=== PATIENT | female | born 1965 | race Caucasian/White ===

== ENCOUNTER 2024-01-29 08:42 | Emergency (ER) | payer MEDICAID ==
[~2024-01-29] VITALS: Ht 152.4 cm; Wt 63.0 kg
[2024-01-29 08:45] VITALS: O2SAT 99
[2024-01-29] MEDS ORDERED: KETOROLAC 60MG/2ML VIAL IM ONE (09:15)
[2024-01-29] MEDS ORDERED: IBUP-2029 MT (09:34)
[2024-01-29] MEDS ORDERED: BO1 TP (09:34)
[2024-01-29] MEDS: KETOROLAC 30MG/ML VIAL IM SCH (10:14)
[2024-01-29] MEDS: ACETAMINOPHEN 325MG TABLET PO ONE (10:14)
[2024-01-29] MEDS: BACITRACIN 14GM TUBE TOP ONE (10:15)
[2024-01-29 10:25] VITALS: BP 119/74; PULSE 74; RESP 18; TEMP 98.1
== END 2024-01-29 10:17 | disposition home or self-care (01) ==
LOC: ER 08:42
DX: M79.601 Pain in right arm (principal); E11.9 Type 2 diabetes mellitus without complications; I10 Essential (primary) hypertension
CPT/HCPCS: 96372; 99283; J1885; Z7610